=== PATIENT | male | born 1995 | race Caucasian/White ===

== ENCOUNTER → 2017-06-17 | Outpatient (CLI) | payer OTHER ==
[~2017-06-17] MED LIST: CETI10TA84 PO; CITA40TA12 PO; RISP0.258 PO
--- NOTE | 2017-06-17 13:50 | DIAGNOSTIC IMAGING REPORT ---
NUCLEAR GASTRIC EMPTYING STUDY HISTORY: Nausea. COMPARISON: None. TECHNIQUE: Following the oral administration of 1.1 mCi of technetium 99m sulfur colloid in egg sandwich and 8 ounces of water, static abdominal images are obtained anteriorly and posteriorly at 0 minutes, 1 hour, 2 hour, and 4 hour time intervals. Gastric emptying was calculated utilizing the geometric mean method. FINDINGS: There is approximately 78% activity remaining at the 1 hour time interval (normal is less than 90%), 69% remaining at the 2 hour time interval (normal is less than 60%), and 9% activity remaining at the 4 hour time interval (normal is less than 10%). IMPRESSION: Mild delayed gastric emptying at the 2 hour time interval only. Otherwise, normal study. Electronically signed by: Abad Ewing M.D. 06/17/2017 1:49 PM Dictated Date/Time: 06/17/2017 1:48 PM
== END | disposition home or self-care (01) ==
LOC: C.NUCL 08:50
PROVIDERS: ATTEND Physician Assistant
DX: R11.0 Nausea (principal)